=== PATIENT | female | born 1945 | race Hispanic/Latino ===

== ENCOUNTER 2017-12-17 13:50 | Outpatient (CLI) | payer MEDICARE ==
--- NOTE | 2017-12-19 13:00 | XRay Report ---
XRAY CHEST TWO VIEWS: 12/17/17 13:50:00 CLINICAL: Aspiration pneumonia. COMPARISON: None FINDINGS: The heart is borderline large with cephalization of pulmonary blood flow to the upper lobes. The lungs are normally expanded and clear. No airspace disease or pleural effusion.Levoscoliosis and moderate degenerative changes in the thoracic spine. Several lower thoracic pression fractures of uncertain age. Vertebral bodies 7 through 10 are decreased in height. No fracture lines. IMPRESSION: No acute cardiopulmonary process.Borderline cardiomegaly with pulmonary venous hypertension. Age-indeterminate lower thoracic compression fractures. No radiographic evidence of pneumonia.
== END 2017-12-17 13:51 | disposition home or self-care (01) ==
LOC: SPVIMAG 13:50
PROVIDERS: ATTEND Internal Medicine
DX: M47.894 Other spondylosis, thoracic region (principal); M41.84 Other forms of scoliosis, thoracic region; M48.54XA Collapsed vertebra, not elsewhere classified, thoracic region, initial encounter for fracture
CPT/HCPCS: 71046